=== PATIENT | male | born 1980 | race Caucasian/White ===

== ENCOUNTER 2016-08-13 11:34 | Emergency (ER) | payer MEDICAID ==
[2016-08-13] MEDS ORDERED: Famotidine 20 MG/2 ML SDV IVPUSH ONE (12:14)
[2016-08-13] MEDS ORDERED: Sodium Chloride 0.9% 10 ML Syringe FLUSH PRN (12:14)
[2016-08-13] MEDS ORDERED: Ondansetron 4 MG/2 ML SDV IVPUSH ONE (12:14)
[2016-08-13] MEDS ORDERED: Sodium Chloride 0.9% 1,000 ML IV SCH ×2 (12:15→14:00)
[2016-08-13] MEDS ORDERED: LORazepam 2 MG/ML MDV IVPUSH ONE (12:21)
[2016-08-13] MEDS ORDERED: Metoclopramide 10 MG/2 ML SDV IVPUSH ONE (15:18)
[2016-08-13] MEDS ORDERED: HYDROmorphone 0.5 MG/0.5 ML Syringe IVPUSH ONE (15:37)
[2016-08-13] MEDS ORDERED: Ketorolac 30 MG/ML SDV IVPUSH SCH (15:45)
--- NOTE | 2016-08-13 15:52 | EDM.PDOC ---
ED HPI GI/ABDOMINAL - General Chief Complaint: Abdominal Pain Stated Complaint: VOMITING BLOOD/STOMACH PAINS Time Seen by Provider: 08/13/16 11:55 Source of Information: Reports: Patient, RN notes reviewed - History of Present Illness INITIAL COMMENTS - FREE TEXT/NARRATIVE: 36 year old male with onset of abd pain vomiting 3 dys ago, has had this frequently in the past. Concern for cyclic vomiting. Pt does admit he uses marijuana regularly. States I have "stomach trouble if I don's use it" Not having diarrhea. No fever or chills. No prior surgeries. - Related Data Allergies/ADRs: Allergies Allergy/AdvReac Type Severity Reaction Status Date / Time No Known Allergies Allergy Verified 08/13/16 11:52 Home Meds: Home Meds Metoclopramide [Reglan] 5 mg PO Q8H #14 tablet 08/13/16 [Rx] Ondansetron [Zofran ODT] 4 mg PO Q8H PRN #14 tab.dis 08/13/16 [Rx] Past Medical History - Past Health History Medical/Surgical History: Denies Medical/Surgical History Gastrointestinal History: Reports: Other (see below) (Cyclic vomiting syndrome) Genitourinary History: Reports: Other (see below) Other Genitourinary History: chronic blood in urine Social & Family History - Tobacco Use Smoking Status *Q: Current Every Day Smoker Years of Tobacco use: 20 Packs/Tins Daily: 1 Used Tobacco, but Quit: Yes Month Tobacco Last Used: 2 days Second Hand Smoke Exposure: No - Caffeine Use Caffeine Use: Reports: Energy drinks, Soda - Alcohol Use Days Per Week of Alcohol Use: 0 - Recreational Drug Use Recreational Drug Use: Yes Drug Use in Last 12 Months: Yes Recreational Drug Type: Reports: Marijuana/Hashish Recreational Drug Use Frequency: Daily - Living Situation & Occupation Living situation: Reports: single, with significant other (Girlfriend) Occupation: employed ([employer]) ED ROS GENERAL - Review of Systems Review Of Systems: See Below Constitutional: Denies: fever, chills, diaphoresis HEENT: Reports: No symptoms Respiratory: Denies: Cough Cardiovascular: Denies: Chest pain GI/Abdominal: Reports: Abdominal pain, Nausea, Vomiting. Denies: Diarrhea : Reports: no symptoms Musculoskeletal: Denies: joint pain Skin: Reports: no symptoms Neurological: Reports: Dizziness ED EXAM, GI/ABD - Physical Exam Exam: See Below General Appearance: alert, anxious, moderate distress Throat/Mouth: Normal inspection, Normal oropharynx Head: atraumatic. No: facial swelling Neck: supple, full range of motion Respiratory/Chest: no respiratory distress, lungs clear Cardiovascular: regular rate, rhythm GI/Abdominal: soft, tenderness (mild diffuse). No: guarding, rebound Back Exam: No: CVA tenderness (L), CVA tenderness (R) Extremities: normal inspection, normal range of motion Neurological: alert, oriented, no motor/sensory deficits Skin Exam: Warm, Dry, Normal color Course - Vital Signs Last Recorded V/S: Last Vital Signs Temp 97.2 F 08/13/16 11:48 Pulse 93 08/13/16 16:25 Resp 18 08/13/16 16:25 BP 121/86 08/13/16 16:25 Pulse Ox 100 08/13/16 16:25 - Orders/Labs/Meds Orders: Active Orders 24 hr Category Date Time Status Peripheral IV Care [RC] . DIRECTED Care 08/13/16 12:15 Active Peripheral IV Insertion Adult [OM.PC] Stat Oth 08/13/16 12:14 Ordered Labs: Laboratory Tests 08/13/16 08/13/16 Range/Units 11:50 11:50 WBC 10.77 H (4.23-9.07) K/mm3 RBC 5.62 (4.63-6.08) M/mm3 Hgb 17.3 (13.7-17.5) gm/L Hct 49.8 (40.1-51.0) % MCV 88.6 (79.0-92.2) fl MCH 30.8 (25.7-32.2) pg MCHC 34.7 (32.2-35.5) g/dl RDW Std Deviation 43.8 (35.1-43.9) fL Plt Count 226 (163-337) K/mm3 MPV 10.6 (9.4-12.3) fl Neut % (Auto) 83.0 H (34.0-67.9) % Lymph % (Auto) 12.0 L (21.8-53.1) % [place] % (Auto) 4.6 L (5.3-12.2) % Eos % (Auto) 0 L (0.8-7.0) Baso % (Auto) 0.2 (0.1-1.2) % Neut # (Auto) 8.94 H (1.78-5.38) K/mm3 Lymph # (Auto) 1.29 L (1.32-3.57) K/mm3 [place] # (Auto) 0.50 (0.30-0.82) K/mm3 Eos # (Auto) 0.00 L (0.04-0.54) K/mm3 Baso # (Auto) 0.02 (0.01-0.08) K/mm3 Sodium 140 (136-145) mEq/L Potassium 4.1 (3.5-5.1) mEq/L Chloride 102 (98-107) mEq/L Carbon Dioxide 21 (21-32) mEq/L Anion Gap 21.1 H (5-15) BUN 14 (7-18) mg/dL Creatinine 1.2 (0.7-1.3) mg/dL Est Cr Clr Drug Dosing 83.13 mL/min Estimated GFR (MDRD) > 60 (>60) mL/min BUN/Creatinine Ratio 11.7 L (14-18) Glucose 136 H (74-106) mg/dL Calcium 9.4 (8.5-10.1) mg/dL Total Bilirubin 2.0 H (0.2-1.0) mg/dL AST 17 (15-37) U/L ALT 35 (16-63) U/L Alkaline Phosphatase 70 (46-116) U/L Total Protein 7.9 (6.4-8.2) g/dl Albumin 4.9 (3.4-5.0) g/dl Globulin 3.0 gm/dL Albumin/Globulin Ratio 1.6 (1-2) Lipase 140 (73-393) U/L Meds: Medications Discontinued Medications Generic Name Dose Route Start Last Admin Trade Name Freq PRN Reason Stop Dose Admin Famotidine 20 mg 08/13/16 12:14 08/13/16 12:57 Pepcid IVPUSH 08/13/16 12:15 20 mg ONETIME ONE Administration Hydromorphone HCl 0.5 mg 08/13/16 15:37 08/13/16 15:53 Dilaudid IVPUSH 08/13/16 15:38 0.5 mg ONETIME ONE Administration Sodium Chloride 1,000 mls @ 999 mls/hr 08/13/16 12:15 08/13/16 13:03 Normal Saline IV 999 mls/hr ONETIME ARIC Administration Sodium Chloride 1,000 mls @ 999 mls/hr 08/13/16 14:00 08/13/16 14:00 Normal Saline IV 999 mls/hr ONETIME ARIC Administration Ketorolac Tromethamine 30 mg 08/13/16 15:45 08/13/16 15:54 Toradol IVPUSH 30 mg ONETIME ARIC Administration Lorazepam 1 mg 08/13/16 12:21 08/13/16 13:00 Ativan IVPUSH 08/13/16 12:22 1 mg ONETIME ONE Administration Metoclopramide HCl 10 mg 08/13/16 15:18 08/13/16 15:23 Reglan IVPUSH 08/13/16 15:19 10 mg ONETIME ONE Administration Ondansetron HCl 4 mg 08/13/16 12:14 08/13/16 12:54 Zofran IVPUSH 08/13/16 12:15 4 mg ONETIME ONE Administration Sodium Chloride 10 ml 08/13/16 12:14 08/13/16 12:59 Saline Flush FLUSH 10 ml ASDIRECTED PRN Administration Keep Vein Open - Re-Assessments/Exams Free Text/Narrative Re-Assessment/Exam: 08/13/16 17:32 treated initially with 1 liter NS, IV zofran, pepcid and ativan. Sleeping when I checked on him after these meds. Anion gap elevated, did give a 2nd liter NS , than having pain and cramping and more nausea, gave relglan IV, 0.5 mg dilaudid IV, torodol IV. Discharge instr. as documented. Does not have a provider, planning to follow up with Nereyda Wilver. Departure - Departure Time of Disposition: 15:52 Disposition: Home, Self-Care 01 Condition: fair Clinical Impression: Vomiting Qualifiers: Vomiting type: unspecified Vomiting Intractability: unspecified Nausea presence : with nausea Qualified Code(s): R11.2 - Nausea with vomiting, unspecified Prescriptions: Metoclopramide [Reglan] 5 mg PO Q8H #14 tablet Ondansetron [Zofran ODT] 4 mg PO Q8H PRN #14 tab.dis PRN Reason: Nausea/Vomiting Instructions: Nausea and Vomiting, Adult, [id number] Referrals: PCP,Unknown [Primary Care Provider] - Forms: ED Department Discharge Additional Instructions: the vomiting you are experiencing today is very likely triggered by or related to your chronic marijuana usage. You can research this to learn more about the syndrome of "cyclic vomiting associated with chronic marijuana usage". I strongly encourage you to stop the marijuana as previously recomended by Dr Man on one of your last visits. Clear liquids until this evening. Than very careful bland diet as tolerated. Reglan 5 mg 3 times daily. Alternate that with Zofran 4 mg ODT also 3 times daily for now until nausea has completely resolved. Follow up with Nereyda Pettit as planned. She can see how you are doing with the above meds, consider other meds to help your stomach as indicated, further GI work up as needed. - My Orders Last 24 Hours: My Active Orders 08/13/16 12:14 Peripheral IV Insertion Adult [OM.PC] Stat 08/13/16 12:15 Peripheral IV Care [RC] . DIRECTED - Assessment/Plan Last 24 Hours: My Active Orders 08/13/16 12:14 Peripheral IV Insertion Adult [OM.PC] Stat 08/13/16 12:15 Peripheral IV Care [RC] . DIRECTED
[2016-08-13 16:25] VITALS: BP 121/86
== END 2016-08-13 16:25 | disposition home or self-care (01) ==
LOC: JD.ED 11:34
DX: R11.2 Nausea with vomiting, unspecified (principal); F17.200 Nicotine dependence, unspecified, uncomplicated; F12.90 Cannabis use, unspecified, uncomplicated
CPT/HCPCS: 36415; 80053; 83690; 85025; 96361; 96374; 96375; 99284; J1170; J1885; J2060; J2405; J2765; J7040; J7050

== ENCOUNTER 2017-02-16 07:55 | Emergency (ER) | payer MEDICAID ==
[2017-02-16] MEDS ORDERED: Ondansetron 4 MG/2 ML SDV IVPUSH ONE (08:22)
[2017-02-16] MEDS ORDERED: Sodium Chloride 0.9% 10 ML Syringe FLUSH PRN (08:22)
[2017-02-16] MEDS ORDERED: Famotidine 20 MG/2 ML SDV IVPUSH ONE (08:22)
[2017-02-16] MEDS ORDERED: Sodium Chloride 0.9% 1,000 ML IV SCH (08:30)
[2017-02-16] MEDS ORDERED: HYDROmorphone 1 MG/ML Syringe IVPUSH ONE (09:27)
--- NOTE | 2017-02-16 10:30 | EDM.PDOC ---
ED HPI GENERAL MEDICAL PROBLEM - General Chief Complaint: Abdominal Pain Stated Complaint: TROWING UP FOR THREE DAYS Time Seen by Provider: 02/16/17 08:19 Source of Information: Reports: Patient, RN Notes Reviewed - History of Present Illness INITIAL COMMENTS - FREE TEXT/NARRATIVE: 36-year-old male comes in with abdominal pain nausea vomiting. This is been going on intermittently for about 3 days. He has had issues with this in the past. He also struggles with chronic constipation. He does take MiraLAX and other [id number] medications for that. Sounds like he did have a decent BM just a day or 2 ago. The abdominal pain has been primarily upper mid abdomen with intermittent cramping. He feels better after vomiting. He states he also feels better when he drinks "cold water". He has been suspected of having hyperemesis syndrome in the past. It sounds like when he is off marijuana he does do better but still does have issues with constipation and intermittent abdominal discomfort. Sounds like he has been using the marijuana more this past week suggestive that once again that is a trigger for hiscurrent symptomatology. Abdominal Pain Score (Numeric/FACES): 10 - Related Data Allergies Allergy/AdvReac Type Severity Reaction Status Date / Time No Known Allergies Allergy Verified 02/16/17 08:15 Home Meds: Home Meds Calcium Carbonate [Tums Extra Strength] 2 tab PO TID 02/16/17 [History] Ondansetron [Zofran ODT] 4 mg PO Q6H PRN #14 tab.dis 02/16/17 [Rx] Simethicone [Gas-X] 125 mg PO DAILY 02/16/17 [History] Past Medical History - Past Health History Medical/Surgical History: Denies Medical/Surgical History Gastrointestinal History: Reports: Other (See Below) Other Gastrointestinal History: cyclic vomiting syndrome, hernia Genitourinary History: Reports: Other (See Below) Other Genitourinary History: chronic blood in urine Social & Family History - Tobacco Use Smoking Status *Q: Current Every Day Smoker Years of Tobacco use: 20 Packs/Tins Daily: 0.5 Used Tobacco, but Quit: Yes Month Tobacco Last Used: 2 days Second Hand Smoke Exposure: No - Caffeine Use Caffeine Use: Reports: None - Alcohol Use Days Per Week of Alcohol Use: 0 - Recreational Drug Use Recreational Drug Use: Yes Drug Use in Last 12 Months: Yes Recreational Drug Type: Reports: Marijuana/Hashish Recreational Drug Use Frequency: Daily - Living Situation & Occupation Living situation: Reports: Single, with Significant Other Occupation: Employed ED ROS GENERAL - Review of Systems Review Of Systems: See Below Constitutional: Denies: Fever, Chills HEENT: Reports: No Symptoms Respiratory: Denies: Shortness of Breath, Pleuritic Chest Pain Cardiovascular: Denies: Chest Pain GI/Abdominal: Reports: Abdominal Pain, Constipation, Nausea, Vomiting. Denies: Diarrhea Musculoskeletal: Reports: No Symptoms Skin: Reports: No Symptoms Neurological: Reports: No Symptoms ED EXAM, GI/ABD - Physical Exam Exam: See Below General Appearance: Alert, Anxious, Moderate Distress Eyes: Bilateral: Normal Appearance Throat/Mouth: Normal Inspection, Normal Oropharynx Head: Atraumatic. No: Facial Swelling Neck: Supple, Full Range of Motion Respiratory/Chest: No Respiratory Distress, Lungs Clear, Normal Breath Sounds Cardiovascular: Regular Rate, Rhythm GI/Abdominal Exam: Soft, Tender (for a mild upper midepigastric tenderness abdomen otherwise soft and nontender at this time). No: Guarding, Rebound Back Exam: No: CVA Tenderness (L), CVA Tenderness (R) Extremities: Normal Inspection, Normal Range of Motion Neurological: Alert, Oriented, No Motor/Sensory Deficits Skin Exam: Warm, Dry, Normal Color Course - Vital Signs Last Recorded V/S: Last Vital Signs Temp 97.8 F 02/16/17 08:07 Pulse 87 02/16/17 08:07 Resp 16 02/16/17 08:07 BP 148/98 H 02/16/17 08:07 Pulse Ox 100 02/16/17 08:07 - Orders/Labs/Meds Orders: Active Orders 24 hr Category Date Time Status Peripheral IV Care [RC] . DIRECTED Care 02/16/17 08:23 Active Abdomen 2V AP Flat Upright [CR] Stat Exams 02/16/17 09:07 Taken Sodium Chloride 0.9% [Normal Saline] 1,000 ml Med 02/16/17 08:30 Active IV ONETIME Sodium Chloride 0.9% [Saline Flush] Med 02/16/17 08:22 Active 10 ml FLUSH ASDIRECTED PRN Peripheral IV Insertion Adult [OM.PC] Stat Oth 02/16/17 08:22 Ordered Medication Orders Sodium Chloride (Normal Saline) 1,000 mls @ 999 mls/hr IV ONETIME ARIC Last Admin: 02/16/17 08:33 Dose: 999 mls/hr Sodium Chloride (Saline Flush) 10 ml FLUSH ASDIRECTED PRN PRN Reason: Keep Vein Open Last Admin: 02/16/17 08:36 Dose: 10 ml Labs: Laboratory Tests 02/16/17 02/16/17 Range/Units 08:10 08:10 WBC 8.41 (4.23-9.07) K/mm3 RBC 5.25 (4.63-6.08) M/mm3 Hgb 16.6 (13.7-17.5) gm/L Hct 47.1 (40.1-51.0) % MCV 89.7 (79.0-92.2) fl MCH 31.6 (25.7-32.2) pg MCHC 35.2 (32.2-35.5) g/dl RDW Std Deviation 43.9 (35.1-43.9) fL Plt Count 195 (163-337) K/mm3 MPV 10.4 (9.4-12.3) fl Neut % (Auto) 79.1 H (34.0-67.9) % Lymph % (Auto) 13.3 L (21.8-53.1) % [place] % (Auto) 6.8 (5.3-12.2) % Eos % (Auto) 0.2 L (0.8-7.0) Baso % (Auto) 0.4 (0.1-1.2) % Neut # (Auto) 6.65 H (1.78-5.38) K/mm3 Lymph # (Auto) 1.12 L (1.32-3.57) K/mm3 [place] # (Auto) 0.57 (0.30-0.82) K/mm3 Eos # (Auto) 0.02 L (0.04-0.54) K/mm3 Baso # (Auto) 0.03 (0.01-0.08) K/mm3 Sodium 140 (136-145) mEq/L Potassium 4.0 (3.5-5.1) mEq/L Chloride 105 (98-107) mEq/L Carbon Dioxide 23 (21-32) mEq/L Anion Gap 16.0 H (5-15) BUN 14 (7-18) mg/dL Creatinine 1.1 (0.7-1.3) mg/dL Est Cr Clr Drug Dosing TNP Estimated GFR (MDRD) > 60 (>60) mL/min BUN/Creatinine Ratio 12.7 L (14-18) Glucose 137 H (74-106) mg/dL Calcium 9.4 (8.5-10.1) mg/dL Total Bilirubin 2.0 H (0.2-1.0) mg/dL AST 18 (15-37) U/L ALT 32 (16-63) U/L Alkaline Phosphatase 65 (46-116) U/L Total Protein 7.6 (6.4-8.2) g/dl Albumin 4.4 (3.4-5.0) g/dl Globulin 3.2 gm/dL Albumin/Globulin Ratio 1.4 (1-2) Lipase 233 (73-393) U/L Meds: Medications Generic Name Dose Route Start Last Admin Trade Name Freq PRN Reason Stop Dose Admin Sodium Chloride 1,000 mls @ 999 mls/hr 02/16/17 08:30 02/16/17 08:33 Normal Saline IV 999 mls/hr ONETIME ARIC Administration Sodium Chloride 10 ml 02/16/17 08:22 02/16/17 08:36 Saline Flush FLUSH 10 ml ASDIRECTED PRN Administration Keep Vein Open Discontinued Medications Generic Name Dose Route Start Last Admin Trade Name Freq PRN Reason Stop Dose Admin Famotidine 20 mg 02/16/17 08:22 02/16/17 08:36 Pepcid IVPUSH 02/16/17 08:23 20 mg ONETIME ONE Administration Hydromorphone HCl 1 mg 02/16/17 09:27 02/16/17 09:43 Dilaudid IVPUSH 02/16/17 09:28 1 mg ONETIME ONE Administration Ondansetron HCl 4 mg 02/16/17 08:22 02/16/17 08:34 Zofran IVPUSH 02/16/17 08:23 4 mg ONETIME ONE Administration - Re-Assessments/Exams Free Text/Narrative Re-Assessment/Exam: 02/16/17 10:40 labs are normal, flat and upright of the abdomen does show moderate stool in the colon but not excessive at this time, no major dilatation. No air-fluid levels. He is feeling much better after 1 L IV fluid, IV Zofran and Pepcid 20 mg IV. He did Start having more pain after my exam so Dilaudid 1 mg IV was also given. Departure - Departure Time of Disposition: 10:27 Disposition: Home, Self-Care 01 Condition: Fair Clinical Impression: Vomiting Qualifiers: Vomiting type: unspecified Vomiting Intractability: non-intractable Nausea presence: with nausea Qualified Code(s): R11.2 - Nausea with vomiting, unspecified Abdominal pain Qualifiers: Abdominal location: generalized Qualified Code(s): R10.84 - Generalized abdominal pain - Discharge Information Prescriptions: Ondansetron [Zofran ODT] 4 mg PO Q6H PRN #14 tab.dis PRN Reason: Nausea/Vomiting Instructions: Abdominal Pain, Adult, [id number], Nausea and Vomiting, Adult Referrals: Celeste Pettit, [employer] MAINTENA[employer] WORK[employer] [Primary Care Provider] - Forms: ED Department Discharge Additional Instructions: clear liquids until later this afternoon, then very careful bland diet as tolerated, Zofran if needed for further nausea or vomiting, follow-up clinic if symptoms not resolving as expected. Check with your regular medical provider Friday with regard to getting a sleep study scheduled. Return to ED if symptoms worsening in any way. - My Orders Last 24 Hours: My Active Orders 02/16/17 08:22 Sodium Chloride 0.9% [Saline Flush] 10 ml FLUSH ASDIRECTED PRN Peripheral IV Insertion Adult [OM.PC] Stat 02/16/17 08:23 Peripheral IV Care [RC] . DIRECTED 02/16/17 08:30 Sodium Chloride 0.9% [Normal Saline] 1,000 ml IV ONETIME 02/16/17 09:07 Abdomen 2V AP Flat Upright [CR] Stat - Assessment/Plan Last 24 Hours: My Active Orders 02/16/17 08:22 Sodium Chloride 0.9% [Saline Flush] 10 ml FLUSH ASDIRECTED PRN Peripheral IV Insertion Adult [OM.PC] Stat 02/16/17 08:23 Peripheral IV Care [RC] . DIRECTED 02/16/17 08:30 Sodium Chloride 0.9% [Normal Saline] 1,000 ml IV ONETIME 02/16/17 09:07 Abdomen 2V AP Flat Upright [CR] Stat
[2017-02-16 11:03] VITALS: BP 123/88
--- NOTE | 2017-02-17 12:50 | CR ---
Abdomen: Supine and upright views of the abdomen were obtained. Comparison: Previous abdominal x-ray of 04/01/16. Bowel gas pattern is normal. No abnormal calcifications or soft tissue abnormality is seen. Bony structures are unremarkable. No free air is seen. Impression: 1. No abnormality is identified on two-view abdominal x-ray. Diagnostic code #1
== END 2017-02-16 10:40 | disposition home or self-care (01) ==
LOC: JD.ED 07:55
DX: R10.84 Generalized abdominal pain (principal); R11.2 Nausea with vomiting, unspecified; F17.210 Nicotine dependence, cigarettes, uncomplicated; Z79.899 Other long term (current) drug therapy
CPT/HCPCS: 36415; 74020; 80053; 83690; 85025; 96361; 96374; 96375; 99284; J1170; J2405; J7040; J7050

== ENCOUNTER 2022-10-13 16:47 | Emergency (ER) | payer SELFPAY ==
[2022-10-13] MEDS ORDERED: HYDROmorphone 1 MG/ML Syringe IM ONE (17:34)
[2022-10-13] MEDS ORDERED: Orphenadrine 100 MG Tab.ER PO ONE (19:50)
[2022-10-13] MEDS ORDERED: Acetaminophen/HYDROcodone 325-5 MG Tab PO ONE (19:50)
[2022-10-14 02:27] VITALS: BP 124/90; PULSE 78
== END 2022-10-13 20:02 | disposition home or self-care (01) ==
LOC: JD.ED 16:47
DX: S22.039A Unspecified fracture of third thoracic vertebra, initial encounter for closed fracture (principal); S22.059A Unspecified fracture of T5-T6 vertebra, initial encounter for closed fracture; W10.9XXA Fall (on) (from) unspecified stairs and steps, initial encounter; Y92.838 Other recreation area as the place of occurrence of the external cause
CPT/HCPCS: 71045; 72128; 96372; 99284; A9270; J1170; 99283

== ENCOUNTER 2023-06-21 06:43 | Emergency (ER) | payer SELFPAY ==
[2023-06-21 09:30] VITALS: BP 132/84; PULSE 80
== END 2023-06-21 08:32 | disposition home or self-care (01) ==
LOC: JD.ED 06:43
DX: M54.50 Low back pain, unspecified (principal); F17.210 Nicotine dependence, cigarettes, uncomplicated; Z79.899 Other long term (current) drug therapy
CPT/HCPCS: 72100; 72100-26; 99283